=== PATIENT | female | born 1985 | race Hispanic/Latino ===

== ENCOUNTER 2016-06-30 06:49 | Emergency (ER) | payer OTHER ==
[~2016-06-30] VITALS: Ht 157.5 cm; Wt 53.5 kg
[~2016-06-30 06:49] MED LIST: -; NAPROSYN500 M1 PO; TRAMADOL HCL50 M1 PO
[2016-06-30 08:10] VITALS: BP 126/84
[2016-06-30] MEDS ORDERED: DICLOFENAC SODI75 M2 PO (08:12)
--- NOTE | 2016-06-30 08:12 | ED UPPER/LOWER EXTREMITY COMPL ---
History of Present Illness General Chief Complaint: Upper Extremity Problem Stated Complaint: "RT FOREARM PAIN [id number]" Source: patient Exam Limitations: no limitations Vital Signs & Intake/Output Vital Signs & Intake/Output Vital Signs Date Time Temp Pulse Resp B/P Pulse O2 O2 Flow FiO2 Ox Delivery Rate 06/30 0700 98.2 82 16 116/81 98 Room Air Allergies Coded Allergies: No Known Allergies (04/29/16) Reconcile Medications [-] 0 socorro was seen in this department on 04/28/16, no work today. limited use of right hand x 1 week Tramadol HCl 50 MG TABLET 1 TAB PO TID PRN pain Triage Note: 30yo FEMALE TO TRIAGE W/CO R FOREARM PAIN X 1 MONTH. STTES SHE "HAS BEEN SEEN HERE BEFORE AND DXED TENDONITIS, AND HAS BEEN TAKING 2 ADVIL DAILY W/OUT RELIEF" DENIES ANY INITIAL INJURY OR TRAUMA Triage Nurses Notes Reviewed? yes : No Patient currently breastfeeds: No HPI: Patient presents for evaluation of a right forearm pain that began about one month ago. Patient was evaluated in the emergency department and diagnosed with tendinitis. She was subsequently treated with a wrist splint and ibuprofen. 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 She states that the pain is still present. She stopped taking the ibuprofen about 2 days ago. She is describing a constant pain that gets worse with palpation and certain movements of the forearm and wrist. There is no associated redness or ecchymoses or soft tissue swelling. Past History Travel History Traveled to [place] past 21 day No Medical History Any Pertinent Medical History? 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 No Review of Systems Review of Systems Constitutional: Reports: no symptoms. EENTM: Reports: no symptoms. Respiratory: Reports: no symptoms. Cardiovascular: Reports: no symptoms. Gastrointestinal/Abdominal: Reports: no symptoms. Genitourinary: Reports: no symptoms. Musculoskeletal: Reports: see HPI. Skin: Reports: no symptoms. Neurological/Psychological: Reports: no symptoms. Hematologic/Endocrine: Reports: no symptoms. Immunological: Reports: no symptoms. All Other Systems: Reviewed and Negative Physical Exam Physical Exam General Appearance: SEE BELOW Comments: Gen.: Well-nourished, well-developed, no acute respiratory distress. Head: Normocephalic, atraumatic. Eyes: Normal inspection bilaterally Ears: Normal inspection bilaterally Nose: Normal inspection, nasal cannula in place Throat/mouth : Moist mucosa Neck: Supple, full range of motion, no goiter Heart: Regular rate and rhythm Lungs: Quiet respirations Back: Normal range of motion Extremities: Right forearm: Tenderness of the distal radius and base of the right thumb without associated soft tissue swelling ecchymoses erythema or warmth. Pain worsens with movement of the hand and thumb. The right hand is neurovascularly intact, radial pulse normal. Neurologic: Cranial nerves grossly intact, speech is clear Skin: warm and dry Psychiatric: Calm, cooperative, no apparent delusions or hallucinations Progress Differential Diagnosis: cellulitis, contusion, DVT, sprain, tendon injury Plan of Care: Anti-inflammatory, wrist splint, orthopedic follow-up Departure Departure Disposition: HOME OR SELF CARE Condition: Stable Clinical Impression Primary Impression: Right wrist tendinitis Referrals: ROBERT DOVE,VITA PATIENT HAS NO PRIMARY CARE DR (PCP/Family) Additional Instructions: Use the previous wrist splint. Voltaren as needed for pain. Follow-up with the orthopedic physician listed for reevaluation this week. Return if any concerns or sudden worsening. Departure Forms: Customer Survey General Discharge Information Prescriptions: Current Visit Scripts Diclofenac Sodium 1 TAB PO BID PRN PAIN #14 TAB
== END 2016-06-30 08:28 ==
LOC: ERH 06:49
DX: M77.8 Other enthesopathies, not elsewhere classified (principal)

== ENCOUNTER 2016-10-29 15:45 | Emergency (ER) | payer OTHER ==
[~2016-10-29] VITALS: Ht 155 cm; Wt 53.0 kg
[~2016-10-29 15:45] MED LIST changes: +DICLOFENAC SODI75 M2 PO
--- NOTE | 2016-10-29 16:14 | ED CARDIAC/CP/PALPITATIONS ---
History of Present Illness General Chief Complaint: Abdominal Pain/Flank Pain Stated Complaint: STOMACH PAIN X1WEEK Source: patient, old records Exam Limitations: no limitations Vital Signs & Intake/Output Vital Signs & Intake/Output Vital Signs Date Time Temp Pulse Resp B/P B/P Pulse O2 O2 Flow FiO2 Mean Ox Delivery Rate 10/29 1740 99.3 64 12 108/68 98 Room Air 10/29 1551 97.9 74 18 121/74 100 Room Air ED Intake and Output 10/30 0000 10/29 1200 Intake Total 0 Output Total Balance 0 Intake, Oral 0 Patient 117 lb Weight Weight Reported by Patient Measurement Method Allergies Coded Allergies: No Known Allergies (04/29/16) Reconcile Medications [-] 0 socorro was seen in this department on 04/28/16, no work today. limited use of right hand x 1 week Diclofenac Sodium 75 MG TABLET.DR 1 TAB PO BID PRN PAIN Tramadol HCl 50 MG TABLET 1 TAB PO TID PRN pain Triage Note: PT TO ED FOR L SIDED REPRODUCIBLE CHEST PAIN THAT BEGAN AFTER SHE TOOK A FAT BURNER LAST NIGHT. REPORTING ONE EPISODE OF VOMITING LAST NIGHT. Triage Nurses Notes Reviewed? yes Onset: Gradual Duration: week(s): (1), constant Timing: recent history Quality/Severity: mild, moderate, aching Location: central Radiation: no radiation Activities at Onset: none Prior Chest Pain/Card Workup: no prior chest pain Nitro Today/Relief: no nitro taken today Aspirin Today: no aspirin today Associated Symptoms: L FLANK LUQ PAIN : No Patient currently breastfeeds: No HPI: 31-year-old female presents to ER for evaluation complaining of multiple complaints. Her first complaint is she is had left-sided chest pain nonradiating reproducible with palpation and worse with palpation for the past 1 day that began after she took a new dietary supplement. She denies tachycardia or palpitations dizziness lightheadedness. She is not taken anything for her symptoms. She is also complaining of left flank and left upper quadrant abdominal pain associated frequency with urination for the past 1 week. She is also been on that partner for the past week prior to symptoms beginning. She denies nausea vomiting diarrhea. Her last menstrual cycle was at the end of September. She denies chance of no vaginal beating or discharge no back pain no shortness of breath no pain with inspiration. (SALMA GARCIA,DELFINO) Past History Travel History Traveled to [place] past 21 day No Medical History Any Pertinent Medical History? 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 No (DELFINO DECKER) Review of Systems Review of Systems Constitutional: Reports: see HPI. All Other Systems: Reviewed and Negative Comments Review of systems: See HPI, All other systems negative. Constitutional, no chills no fever, no malaise HEENT: No visual changes no sore throat no congestion, no ear pain Cardiovascular: chest pain , no palpitation , no orthopnea Skin: no rashes, no change in skin Respiratory: No dyspnea no cough no sputum no hemoptysis GI: No nausea vomiting, no diarrhea, no bloating/constipation : No dysuria Muscle skeletal: No joint pain, no joint swelling, no back pain, no neck pain, Neurologic: , no headache Psych: No stress Heme/endocrine: No bruising no bleeding Immunology: No lymphadenopathy (DELFINO DECKER) Physical Exam Physical Exam General Appearance: well developed/nourished, no apparent distress, alert, awake Cardiovascular: regular rate/rhythm Comments: Well-developed well-nourished person in no acute distress HEENT: Normal EENT exam; PERRL, EOMI, HEAD is atraumatic. moist mucous membranes. Neck: Supple,, normal range of motion Back: Nontender, Full range of motion Cardiovascular: Regular rate and rhythms no murmurs rubs Respiratory: Chest tender tender to palpation.There were no bony deformities, no asymmetry. No respiratory distress. Patient speaking in full complete sentences. Breath sounds clear to auscultation bilaterally: NO W/R/R Abdomen: Soft, nontender nondistended, no appreciable organomegaly. Normal bowel sounds. No rebound/guarding, No appreciable enlargement of the abdominal aorta, No ascites. Extremity: No edema, full range of motion of extremities Neuro: Alert oriented x3, motor sensory normal, There were no obvious focal neurologic abnormalities. Skin: No appreciable rash on exposed skin, skin is warm and dry. Psych: Mood and affect is normal, memory and judgment is normal. Core Measures ACS in differential dx? Yes Severe Sepsis Present: No Septic Shock Present: No (SALMA GARCIA,DELFINO) Progress Differential Diagnosis: AMI, aortic dissection, cholecystitis, musculoskeletal pain, myocarditis, pancreatitis, pericarditis, pneumonia, pneumothorax, pulmonary embolism Plan of Care: Orders Procedure Date/time Status URINE 10/29 163 Complete URINALYSIS 10/29 163 Complete TROPONIN LEVEL 10/29 163 Complete COMPREHENSIVE METABOLIC PANEL 10/29 163 Complete CBC WITHOUT DIFFERENTIAL 10/29 163 Complete EKG 10/29 1551 Active Laboratory Tests 10/29/16 165: Urine Color YEL, Urine Clarity CLEAR, Urine pH 6.0, Ur Specific [place] 1.015, Urine Protein NEG, Urine Ketones NEG, Urine Nitrite NEG, Urine Bilirubin NEG, Urine Urobilinogen 0.2, Ur Leukocyte Esterase NEG, Ur Microscopic SEDIMENT EXAMINED, Urine RBC RARE, Urine WBC 1-3 H, Ur Epithelial Cells MANY H, Urine Bacteria FEW H, Urine Mucus FEW, Urine Hemoglobin TRACE-LYSED, Urine Glucose NEG, Urine Test NEGATIVE 10/29/16 1650: Anion Gap 11, Estimated GFR > 60, BUN/Creatinine Ratio 17.0, Glucose 89, Calcium 9.4, Total Bilirubin 0.4, AST 38 H, ALT 42, Alkaline Phosphatase 56, Troponin I < 0.01, Total Protein 7.1, Albumin 4.3, Globulin 2.8, Albumin/Globulin Ratio 1.5 , CBC w Diff NO MAN DIFF REQ, RBC 4.56, MCV 87.4, MCH 29.4, RDW 13.1, MPV 7.9, Gran % 61.1, Lymphocytes % 30.4, Monocytes % 6.7, Eosinophils % 1.5, Basophils % 0.3, Absolute Granulocytes 5.0, Absolute Lymphocytes 2.5, Absolute Monocytes 0.5 , Absolute Eosinophils 0.1, Absolute Basophils 0, PUBS MCHC 33.6 perc neg, pain is reproducible and chest wall. Labs are unremarkable advised need to stop taking the supplements, close follow-up with her primary care physician and return with any concerns. Cleared for discharge Repeat evaluation patient resting in no apparent distress I discussed with the patient at length all of their results. I had an extensive conversation regarding need for close follow up with their primary care physician this week as well as return precautions. I answered all of their questions, they feel comfortable with the plan and follow-up care. (DELFINO DECKER) Initial ED EKG: nsr at 70, no acute st seg changes,normal axis Rhythm Strip: normal sinus rhythm (DELFINO DECKER) Departure Departure Time of Disposition: 1745 Disposition: HOME OR SELF CARE Condition: Stable Clinical Impression Primary Impression: Atypical chest pain Secondary Impressions: Medication adverse effect Referrals: PATIENT HAS NO PRIMARY CARE DR (PCP/Family) Additional Instructions: Stop taking the supplements that you have as they have not been evaluated by the food drug administration. Tylenol for pain follow-up with your primary care physician return to ER with any concerns if your symptoms persist. Departure Forms: Customer Survey General Discharge Information (DELFINO DECKER) PA/SUPERVISOR DRAPERY HANGING Co-Sign Statement Statement: ED Attending supervision documentation- [] I saw and evaluated the patient. I have also reviewed all the pertinent lab results and diagnostic results. I agree with the findings and the plan of care as documented in the PA's/SUPERVISOR DRAPERY HANGING's documentation. [X] I have reviewed the ED Record and agree with the PA's/SUPERVISOR DRAPERY HANGING's documentation. [] Additions or exceptions (if any) to the PAs/SUPERVISOR DRAPERY HANGING's note and plan are summarized below: [] (KAMALJIT DOVE,VIVIAN) Critical Care Note Critical Care Note Critical Care Time: non-applicable (DELFINO DECKER)
[2016-10-29 17:31] LABS: ABSOLUTE BASOPHIL COUNT 0 /CUMM (0.0-0.2); ABSOLUTE EOSINOPHIL COUNT 0.1 /CUMM (0.0-0.7); ABSOLUTE LYMPH COUNT 2.5 /CUMM (1.2-3.4); ABSOLUTE MONOCYTE COUNT 0.5 /CUMM (0.10-0.60); BASOPHIL % 0.3 % (0.0-2.0); EOSINOPHIL % 1.5 % (0-5); GRANULOCYTE % 61.1 % (42.2-75.2); HEMATOCRIT 39.8 % (37-47); MEAN CORPUSCULAR HGB 29.4 PG (27.0-31.0); MEAN CORPUSCULAR HGB CONC 33.6 G/DL (33.0-37.0); MEAN CORPUSCULAR VOLUME 87.4 FL (81.0-99.0); MEAN PLATELET VOLUME 7.9 FL (7.4-10.4); PLATELET COUNT 338 /CUMM (130-400); RBC DISTRIBUTION WIDTH 13.1 % (11.5-14.5); RED BLOOD CELL CT 4.56 /CUMM (4.20-5.40); WHITE BLOOD CELL COUNT 8.2 /CUMM (4.8-10.8)
[2016-10-29 17:40] VITALS: BP 108/68
== END 2016-10-29 18:10 ==
LOC: ERH 15:45
PROVIDERS: Physician Assistant Medical
DX: T50.905A Adverse effect of unspecified drugs, medicaments and biological substances, initial encounter (principal); R07.89 Other chest pain
CPT/HCPCS: 81001; 81025; 93005; 93010

== ENCOUNTER 2016-12-29 08:21 | Emergency (ER) | payer SELFPAY ==
[~2016-12-29] VITALS: Ht 150 cm; Wt 53.5 kg
[2016-12-29 08:26] VITALS: BP 105/66
[2016-12-30] MEDS ORDERED: CIPRO500 M1 PO (08:20)
== END 2016-12-29 09:55 | disposition admitted as inpatient to this hospital (09) ==
LOC: ERH 08:21
DX: R35.0 Frequency of micturition (principal)